=== PATIENT | female | born 1995 ===

== ENCOUNTER 2017-09-14 14:47 | Emergency (ER) | payer BC ==
--- NOTE | 2017-09-14 15:30 | RAD ---
HISTORY: Finger injury, COMPARISONS: None VIEWS: 3, Frontal, lateral, and oblique views of the second digit of the right hand FINDINGS: BONE DENSITY: Normal. BONES: There is no displaced fracture. JOINTS: There is no arthropathy. ALIGNMENT: There is no dislocation. SOFT TISSUES: Unremarkable. OTHER FINDINGS: None. IMPRESSION: NO ACUTE OSSEOUS INJURY. IF SYMPTOMS PERSIST, RECOMMEND REPEAT IMAGING.
--- NOTE | 2017-09-14 15:38 | UC ---
Eugene Duval Natalie, scribed for Cam Skinner MD on 09/14/17 at 1516 . Hand/Wrist HPI - HPI Summary HPI Summary: The patient is a 22 y/o F presenting to [facility] c/o slamming right index finger in a car door last night. The pain is rated 4/10 in severity. Currently, her finger is sore to move, and there is bruising present. She used a make-shift split to keep the finger in place [employer]. The pain is worst in the middle of the finger, and it's more stiff than normal because of the splint. The rest of her hand is alright. - History Of Current Complaint Chief Complaint: UCUpperExtremity Stated Complaint: FINGER INJURY Time Seen by Provider: 09/14/17 15:03 Hx Obtained From: Patient Hx Last Menstrual Period: 08/24/17 Onset/Duration: Sudden Onset, Lasting Hours - starting last night, Still Present Severity Initially: Mild Severity Currently: Mild Pain Intensity: 4 Pain Scale Used: 0-10 Numeric Character Of Pain: Stiffness Aggravating Factor(s): Movement Alleviating Factor(s): Other - splint Associated Signs And Symptoms: Positive: Bruising - Allergies/Home Medications Allergies/Adverse Reactions: Allergies Allergy/AdvReac Type Severity Reaction Status Date / Time No Known Allergies Allergy Verified 09/14/17 15:01 Home Medications: Home Medications Levonorgestrel-Ethin Estradiol [Orsythia] 1 tab PO 09/14/17 [History] PMH/Surg Hx/FS Hx/Imm Hx Other Endocrine History: NEGATIVE: diabetes Other Cardiovascular History: NEGATIVE: cardiac disease - Surgical History Surgical History: None - Family History Known Family History: Negative: Cardiac Disease - Social History Alcohol Use: Weekly Substance Use Type: None Smoking Status (MU): Never Smoked Tobacco Review of Systems Skin: Bruising Musculoskeletal: Other: - right index finger pain and soreness All Other Systems Reviewed And Are Negative: Yes Physical Exam Triage Information Reviewed: Yes Vital Signs: Initial Vital Signs Temp 99.1 F 09/14/17 14:58 Pulse 95 09/14/17 14:58 Resp 18 09/14/17 14:58 BP 133/82 09/14/17 14:58 Pulse Ox 100 09/14/17 14:58 Vital Signs Reviewed: Yes ENT Exam: Normal Neck: Positive: Nontender Respiratory: Positive: Lungs clear Cardiovascular: Positive: Pulses Normal Abdomen Description: Negative: Distended Musculoskeletal: Positive: ROM Intact, No Edema, Other: - mild tenderness over the index finger right hand middle phalynx. Normal profundus and superificalis strenght. No bruise.. Negative: ROM Limited @ Neurological: Positive: Alert Psychological: Positive: Normal Response To Family Skin Exam: Normal Diagnostics - Radiology Finger XR Xray Interpretation: No Acute Changes - No acute osseous injury. If symptoms persist, recommend repeat imaging. [facility] physician has reviewed this report. Radiology Interpretation Completed By: Radiologist Hand/Wrist Course/Dx - Course Course Of Treatment: 22 yr old with contusion to the finger. Xrays Negative. DC home. - Differential Dx/Diagnosis Provider Diagnoses: contusion right index finger. elevated blood pressure reading. Discharge - Sign-Out/Discharge Documenting (check all that apply): Discharge/Admit/Transfer - Discharge Plan Condition: Good Disposition: HOME Patient Education Materials: Contusion in Adults (ED), Hypertension (ED) Referrals: No Primary Care Phys,NOPCP [Primary Care Provider] - [facility] @ [facility] [Outside] - Billing Disposition and Condition Condition: GOOD Disposition: HOME The documentation as recorded by the Eugene cox Natalie accurately reflects the service I personally performed and the decisions made by Susanne barton Walter, MD.
== END 2017-09-14 15:58 | disposition home or self-care (01) ==
LOC: UCEAST 14:47
DX: S60.021A Contusion of right index finger without damage to nail, initial encounter (principal); W22.8XXA Striking against or struck by other objects, initial encounter; Y92.9 Unspecified place or not applicable
CPT/HCPCS: 73140; 99201; G0463

== ENCOUNTER 2018-08-29 10:36 | Emergency (ER) | payer BC ==
[2018-08-29 10:47] VITALS: BP 126/79
--- NOTE | 2018-08-29 11:34 | UC ---
Head Injury HPI - HPI Summary HPI Summary: 23-year-old female presents for concerns of a head injury. States yesterday she slipped while descending some stairs and struck the back of her head on a step. No loss of consciousness. She has full recollection of the events prior to and following the injury. States she had a mild headache yesterday with a couple episodes of nausea but symptoms have subsided today. States this morning noticed some stiffness to her neck but denies any neck pain. States she also struck the left side of her chest and left hip when she fell. She was able to walk and bear weight immediately after the injury as well as in the clinic. Denies fever, chills, visual disturbances, difficulty concentrating, dizziness, extremity weakness, numbness, or tingling, shortness of breath, cough , abdominal pain, vomiting, or other injury. - History Of Current Complaint Chief Complaint: UCHeadInjury Stated Complaint: HEAD INJURY Time Seen by Provider: 08/29/18 11:28 Hx Obtained From: Patient Hx Last Menstrual Period: 08/15/18 Pain Intensity: 2 - Allergies/Home Medications Allergies/Adverse Reactions: Allergies Allergy/AdvReac Type Severity Reaction Status Date / Time No Known Allergies Allergy Verified 08/29/18 10:40 PMH/Surg Hx/FS Hx/Imm Hx Previously Healthy: Yes - Denies significant PMH - Surgical History Surgical History: None - Family History Known Family History: Positive: Non-Contributory - Social History Occupation: Student Lives: Dormitory/Roommates Alcohol Use: Weekly Substance Use Type: None Smoking Status (MU): Never Smoked Tobacco Review of Systems All Other Systems Reviewed And Are Negative: Yes Constitutional: Positive: Negative Eyes: Negative: Blurred Vision, Diplopia, Photophobia Respiratory: Negative: Shortness Of Breath, Cough Cardiovascular: Negative: Palpitations, Chest Pain Gastrointestinal: Negative: Abdominal Pain, Vomiting, Diarrhea, Nausea Genitourinary: Positive: Negative Musculoskeletal: Positive: Negative Neurological: Positive: Headache. Negative: Weakness, Paresthesia, Numbness Is Patient Immunocompromised?: No Physical Exam - Summary Physical Exam Summary: GENERAL APPEARANCE: Well developed, well nourished, alert and cooperative, and appears to be in no acute distress. HEAD: Atraumatic. normocephalic. EYES: Conjunctiva clear. No drainage. PERRL, EOM intact. Vision is grossly intact. NECK: Neck supple, non-tender. Full painless ROM. CARDIAC: Normal S1 and S2. No S3, S4 or murmurs. Rhythm is regular. There is no peripheral edema, cyanosis or pallor. Extremities are warm and well perfused. Capillary refill is less than 2 seconds. Peripheral pulses intact. LUNGS: Clear to auscultation without rales, rhonchi, wheezing or diminished breath sounds. Mild left lateral chest wall tenderness with palpation. ABDOMEN: Positive bowel sounds. Soft, nondistended, nontender. No guarding or rebound. No masses or hepatosplenomegally. MUSKULOSKELETAL: ROM intact to all extremities. No joint erythema or tenderness. Normal muscular development. Normal gait. BACK: Examination of the spine reveals normal posture, no spinal deformity or tenderness, decreased range of motion or muscular spasm. NEUROLOGICAL: CN II-XII intact. Strength and sensation symmetric and intact throughout. Reflexes 2+ throughout. Cerebellar testing normal. SKIN: Skin normal color, texture and turgor with no lesions or eruptions. Triage Information Reviewed: Yes Vital Signs: Initial Vital Signs Temp 98.9 F 08/29/18 10:41 Pulse 79 08/29/18 10:41 Resp 16 08/29/18 10:41 BP 126/79 08/29/18 10:41 Pulse Ox 99 08/29/18 10:41 Vital Signs Reviewed: Yes Head Injury Course/Dx - Course Course Of Treatment: 23-year-old female presents for concerns of a head injury. States yesterday she slipped while descending some stairs and struck the back of her head on a step. No loss of consciousness. She has full recollection of the events prior to and following the injury. States she had a mild headache yesterday with a couple episodes of nausea but symptoms have subsided today. States this morning noticed some stiffness to her neck but denies any neck pain. States she also struck the left side of her chest and left hip when she fell. She was able to walk and bear weight immediately after the injury as well as in the clinic. Denies fever, chills, visual disturbances, difficulty concentrating, dizziness, extremity weakness, numbness, or tingling, shortness of breath, cough , abdominal pain, vomiting, or other injury. Afebrile. Vital signs stable. Exam revealed mild left lateral chest wall tenderness but was otherwise unremarkable. Recommending conservative treatment for a closed head injury without loss of consciousness, cervical strain, and chest wall contusion. She is to follow up at the [facility] if symptoms persist. Anticipatory guidance and warning symptoms requiring immediate evaluation in the emergency reviewed with the patient. Verbalizes understanding and agrees with plan of care. - Differential Dx/Diagnosis Differential Diagnosis/HQI/PQRI: Cerebral Contusion, Cervical Sprain, Concussion Without LOC, Intracranial Bleed Provider Diagnosis: Closed head injury without loss of consciousness, Chest wall contusion, Strain , cervical Discharge - Sign-Out/Discharge Documenting (check all that apply): Patient Departure All imaging exams completed and their final reports reviewed: No Studies - Discharge Plan Condition: Stable Disposition: HOME Patient Education Materials: Cervical Strain (ED), Head Injury (ED), Chest Wall Pain (ED) Referrals: No Primary Care Phys,NOPCP [Primary Care Provider] - Additional Instructions: Rest as much as possible. Use acetaminophen (Tylenol) or ibuprofen (Advil, Motrin) as needed for pain or headache. Make sure you are doing some deep breathing exercises every 1-2 hours while awake to help prevent pneumonia. Follow up with the [facility] in 3 days if symptoms persist. Seek immediate medical attention in the emergency room if you develop fever greater than 100.5 F, have severe headache despite taking pain medication, one pupil is larger than the other, you develop any confusion, visual disturbances, dizziness, your difficult to arouse, become short of breath, have worsening chest pain, persistent or projectile vomiting, or any worsening of symptoms. - Billing Disposition and Condition Condition: STABLE Disposition: Home
== END 2018-08-29 12:01 | disposition home or self-care (01) ==
LOC: UCEAST 10:36
DX: S09.90XA Unspecified injury of head, initial encounter (principal); S20.212A Contusion of left front wall of thorax, initial encounter; S16.1XXA Strain of muscle, fascia and tendon at neck level, initial encounter; W01.198A Fall on same level from slipping, tripping and stumbling with subsequent striking against other object, initial encounter; Y92.9 Unspecified place or not applicable
CPT/HCPCS: 99211; G0463